=== PATIENT | female | born 1985 | race Caucasian/White ===

== ENCOUNTER 2016-11-01 19:42 | Emergency (ER) | payer OTHER | END 2016-11-01 20:56 | disposition home or self-care (01) | LOC: ER 19:42 | DX: G43.909 Migraine, unspecified, not intractable, without status migrainosus (principal); J45.909 Unspecified asthma, uncomplicated | CPT/HCPCS: 96361; 96374; 96375; J1100; J1200; J1885; J2060; J2765 ==